=== PATIENT | female | born 2005 | race Two or more races ===

== ENCOUNTER 2024-01-06 17:36 | Emergency (ER) | payer MEDICAID, OTHER ==
[~2024-01-06] VITALS: Ht 160 cm; Wt 36.6 kg
[2024-01-06 18:10] LABS: Urine Bacteria None Seen /hpf (None Seen)
[2024-01-06 18:19] LABS: Urine Blood Negative /uL (Negative); Urine Clarity Clear (Clear); Urine Color Light-Yellow (Yellow); Urine Hyaline Cast FEW /lpf (0 - 2); Urine Mucus FEW (None Seen); Urine Protein, UAD 1+ (Negative); Urine Specific Gravity 1.024 (1.001-1.035); Urine Urobilinogen Normal (Negative); Urine WBC 3 /hpf (0 - 5); Urine pH 5.5 (5.0-9.0)
--- NOTE | 2024-01-06 18:26 | ED.PDOC ---
History of Present Illness HPI Comments 18-year-old female with a history of anorexia brought in by family complaining of nausea, vomiting and abdominal pain described as cramping. Patient states symptoms have been persistent for the past 3 days. She denies any fever, sick contacts, diarrhea or dysuria. She states her last bowel movement was 2 days ago. Chief Complaint: Nausea/Vomiting Time Seen by MD: 18:10 Primary Care Provider: OOA Reviewed Notes: Nurses Notes, Medications, Allergies Allergies: Coded Allergies: NO KNOWN ALLERGIES (Unverified , 01/06/24) Home Meds Active Scripts Metoclopramide Hcl (Reglan) 10 Mg Tab, 10 MG PO Q6HP PRN, #30 TAB prn n/v Prov:NAOMY LEY MD 01/06/24 Doxylamine-Pyridoxine (DICLEGIS) 1 Tab Tab, 1 TAB OR HS PRN, #30 TAB prn n/v Prov:NAOMY LEY MD 01/06/24 Information Source: Patient Mode of Arrival: Ambulatory Severity: Moderate Timing: Days Duration: Since onset, Days Prehospital treatment: None Past Medical History PAST MEDICAL HISTORY: Denies Past Medical History (Other): Anorexia Nervosa Surgical History: Denies all surgeries EXHIBITS MANAGER History: No Pertinent EXHIBITS MANAGER History Family History Family History: Reviewed,noncontributory to illness, Unknown Social History Smoker: Non-Smoker Alcohol: Denies ETOH Use Drugs: Denies Drug Use Lives In: Home Constitutional: denies: chills, diaphoresis, fatigue, fever, malaise, sweats, weakness, others EENTM: denies: blurred vision, double vision, ear bleeding, ear discharge, ear drainage, ear pain, ear ringing, eye pain, eye redness, hearing loss, mouth pain, mouth swelling, nasal discharge, nose bleeding, nose congestion, nose pain, photophobia, tearing, throat pain, throat swelling, voice changes, others Respiratory: denies: cough, hemoptysis, orthopnea, SOB at rest, shortness of breath, SOB with excertion, stridor, wheezing, others Cardiovascular: denies: chest pain, dizzy spells, diaphoresis, Dyspnea on exertion, edema, irregular heart beat, left arm pain, lightheadedness, palpitations, PND, syncope, others Gastrointestinal: reports: abdominal pain, nausea, vomiting; denies: abdomen distended, blood streaked bowels, constipated, diarrhea, dysphagia, difficulty swallowing, hematemesis, melena, poor appetite, poor fluid intake, rectal bleeding, rectal pain, others Genitourinary: denies: abnormal vagina bleeding, burning, dyspareunia, dysuria, flank pain, frequency, hematuria, incontinence, pain, , vagina discharge, urgency, others Neurological: reports: dizziness; denies: fainting, headache, left sided numbness, left sided weakness, numbness, paresthesia, pre-existing deficit, right sided numbness, right sided weakness, seizure, speech problems, tingling, tremors, weakness, others Musculoskeletal: denies: back pain, gout, joint pain, joint swelling, muscle pain, muscle stiffness, neck pain, others Integumetry: denies: bruises, change in color, change in hair/nails, dryness, laceration, lesions, lumps, rash, wounds, others Allergic/Immunocompromised: denies: Difficulty Healing, Frequent Infections, Hives, Itching, others Hematologic/Lymphatic: denies: anemia, blood clots, easy bleeding, easy bruising, swollen glands, others Endocrine: denies: excessive hunger, excessive sweating, excessive thirst, excessive urination, flushing, intolerance to cold, intolerance to heat, unexplained weight gain, unexplained weight loss, others Psychiatric: denies: anxiety, bipolar disorder, depression, hopeless, panic disorder, schizophrenia, sleepless, suicidal, others All Other Systems: Reviewed and Negative Physical Exam General Appearance: No Apparent Distress, Thin HEENT: Other (Dry mucous membranes) Neck: Full Range of Motion, Normal Inspection Respiratory: Lungs Clear, No Accessory Muscle Use, No Respiratory Distress, Normal Breath Sounds Cardiovascular: No Edema, No JVD, Tachycardia Breast Exam: Deferred Gastrointestinal: Non Tender, Soft Genitalia: Deferred Pelvic: Deferred Rectal: Deferred Extremities: Normal inspection, Normal range of motion, Non-tender, No pedal edema Neurologic: Alert, No Motor Deficits, Normal Affect, Normal Mood, No Sensory Deficits Cerebellar Function: NOT DONE Reflexes: NOT DONE Skin: Dry, Pallor, Warm Lymphatic: NOT DONE Was a procedure done? Was a procedure done?: No Differential Dx Considerations may include: Gastritis, gastroenteritis, UTI, electrolyte imbalance, dehydration/hypovolemia, , among others X-Ray, Labs, Meds, VS Vital Signs Date Time Temp Pulse Resp B/P (MAP) Pulse Ox O2 Delivery O2 Flow Rate FiO2 01/06/24 17:50 97.5 122 16 143/84 (103) 97 Lab Test 01/06/24 18:32 01/06/24 17:54 Range/Units White Blood Count 10.8 4.4-10.8 10^3/uL Red Blood Count 5.39 H 4.0-5.20 10^6/uL Hemoglobin 14.1 12.2-16.2 g/dL Hematocrit 43.9 36.0-46.0 % Mean Corpuscular Volume 81.6 80.0-100.0 fL Mean Corpuscular Hemoglobin 26.2 L 28.0-32.0 pg Mean Corpuscular Hemoglobin Concent 32.1 32.0-36.0 g/dL Red Cell Distribution Width 16.0 H 11.8-14.3 % Platelet Count 440 140-450 10^3/uL Mean Platelet Volume 7.1 6.9-10.8 fL Neutrophils (%) (Auto) 87.0 H 37.0-80.0 % Lymphocytes (%) (Auto) 8.2 L 10.0-50.0 % Monocytes (%) (Auto) 4.5 0.0-12.0 % Eosinophils (%) (Auto) 0.1 0.0-7.0 % Basophils (%) (Auto) 0.2 0.0-2.0 % Neutrophils # (Auto) 9.4 H 1.6-8.6 10 ^3/uL Lymphocytes # (Auto) 0.9 0.4-5.4 10 ^3/uL Monocytes # (Auto) 0.5 0-1.3 10 ^3/uL Eosinophils # (Auto) 0 0-0.8 10 ^3/uL Basophils # (Auto) 0 0-0.2 10 ^3/uL Nucleated Red Blood Cells 0.1 % Sodium Level 132 L 136-145 mmol/L Potassium Level 4.9 3.5-5.1 mmol/L Chloride Level 101 98-107 mmol/L Carbon Dioxide Level 12 L 20-31 mmol/L Anion Gap 19 H 5-15 Blood Urea Nitrogen 10 9-23 mg/dL Creatinine 0.80 0.550-1.02 mg/dL Glomerular Filtration Rate Calc 108 >90 mL/min BUN/Creatinine Ratio 12.5 10.0-20.0 Serum Glucose 70 L 74-106 mg/dL Calcium Level 11.1 H 8.7-10.4 mg/dL Total Bilirubin 0.7 0.2-1.0 mg/dL Aspartate Amino Transferase (AST) 22 13-40 U/L Alanine Aminotransferase (ALT) < 9 7-40 U/L Alkaline Phosphatase 96 46-116 U/L Total Protein 9.2 H 5.7-8.2 g/dL Albumin 5.4 H 3.2-4.8 g/dL Lipase 31 12-53 U/L Beta HCG, Quantitative 91753.7 H 1.5-4.2 mIU/mL Urine Color Light-yellow Yellow Urine Clarity Clear Clear Urine pH 5.5 5.0-9.0 Urine Specific [place] 1.024 1.001-1.035 Urine Protein 1+ H Negative Urine Ketones 4+ H Negative Urine Blood Negative Negative /uL Urine Nitrite Negative Negative Urine Bilirubin Negative Negative Urine Urobilinogen Normal Negative mg/dL Urine Leukocyte Esterase Negative Negative /uL Urine RBC 1 0 - 4 /hpf Urine WBC 3 0 - 5 /hpf Urine Squamous Epithelial Cells Few <5 /hpf Urine Bacteria None seen None Seen /hpf Urine Hyaline Casts Few 0 - 2 /lpf Urine Mucus Few None Seen Urine Glucose Normal Normal mg/dL Urine Test Positive Negative PROCEDURE(s): OB4US - OB ULTRASOUND COMP LESS 14WKS REASON: low abd pain,n/v, new dx ORDER NUMBER(s): [id number], ACCESSION NUMBER(s): [id number] OB EVALUATION, LESS THAN 14 WEEKS CLINICAL HISTORY: low abd pain,n/v, new dx COMPARISON: None TECHNIQUE: Grayscale, color-flow Doppler, and spectral Doppler ultrasound of the pelvis is performed by transabdominal and transvaginal technique. FINDINGS: Kerrick Kleaner Operator reports difficulty with the transvaginal examination due to patient discomfort. The uterus measures 7.7 x 6.8 x 4.8 cm. Intrauterine gestational sac and pole are identified. Yolk sac is also noted. Mean gestational sac diameter 1.5 cm. [place]-rump length 0.7 cm. Average gestational age 6 weeks 2 days. heart rate 133 beats per minute. Estimated due date 08/09/2024. Curvilinear, anechoic area superior to the gestational sac measuring approximately 1.4 x 1.0 x 0.8 cm. The right ovary measures 4.3 x 2.8 x 2.2 cm. The left ovary is not visualized. Question trace free fluid in the cul-de-sac. IMPRESSION: Single living intrauterine gestation as above. Anechoic focus adjacent to the gestational sac likely reflecting a subchorionic hematoma. Recommend follow-up as clinically indicated. X-Ray, Labs, Meds, VS Comment 18-year-old female with a history of anorexia complaining of nausea, vomiting and abdominal cramping Vitals remarkable for temperature 97.5, heart rate 122, BP 143/84 Exam remarkable for dry mucous membranes, tachycardia, pallor Urine test was positive. Patient was unaware she was Ob ultrasound: IMPRESSION: Single living intrauterine gestation as above. Anechoic focus adjacent to the gestational sac likely reflecting a subchorionic hematoma. Recommend follow-up as clinically indicated. CBC unremarkable for any abnormality of acute significance, basic metabolic panel remarkable for sodium 132, lipase normal, serum quantitative hCG 61961.7, UA showed protein and ketones. Patient treated with the following in the ED: 2L 0.9 normal saline IV bolus, Reglan 10 mg IV On re-evaluation, patient stated she was feeling better, she tolerated p.o. fluids, vitals were stable. Hospitalization was considered, however the patient had rapid improvement of her symptoms with treatment in the ED, and I no longer feel hospitalization is necessary. Patient appears stable for outpatient treatment with antiemetics and close follow-up to establish care with an OBGYN. Patient will be referred to Dr. Heart. Rx winston Time of 1ST Reevaluation: 18:40 Reevaluation 1ST: Unchanged Time of 2ND Reevaluation: 20:53 Reevaluation 2ND: Improved Patient Education/Counseling: Diagnosis, Treatment, Prognosis Family Education/Counseling: No Family Present Additional Information - The following tests were ordered, and results were reviewed by me: Labs, CT, PHA - I reviewed and agreed with the following test results read by other provider: CT - I discussed treatments and results with medical personnel and: (consultants, family) Departure 1 Departure Time of Disposition: 20:54 Impression: Primary Impression: Hyperemesis gravidarum Disposition: 01 HOME / SELF CARE / HOMELESS Condition: Stable Referrals: [facility] HE[facility] DO Additional Instructions: Your lab tests showed that you are . Your ultrasound showed an approximate 6 week . Your ultrasound report is below. I have prescribed medication for related nausea and vomiting. Follow-up to establish care with an OBGYN in 1-2 days. Return to ER for persistent or worsening symptoms, vaginal bleeding, or any other concern. [place] [id number] Ph: [phone] DIAGNOSTIC IMAGING Diagnostic Imaging Report : [id number] Signed PATIENT: YUMIKO DELGADO ACCT: [id number] UNIT: [id number] : 2005 LOC: ER ROOM / BED: / AGE / SEX: 18 / F ADM STATUS: REG ER SERVICE 185 ORDERING PHYSICIAN: NAOMY LEY MD PROCEDURE(s): OB4US - OB ULTRASOUND COMP LESS 14WKS REASON: low abd pain,n/v, new dx ORDER NUMBER(s): [id number], ACCESSION NUMBER(s): [id number] OB EVALUATION, LESS THAN 14 WEEKS CLINICAL HISTORY: low abd pain,n/v, new dx COMPARISON: None TECHNIQUE: Grayscale, color-flow Doppler, and spectral Doppler ultrasound of the pelvis is performed by transabdominal and transvaginal technique. FINDINGS: Kerrick Kleaner Operator reports difficulty with the transvaginal examination due to patient discomfort. The uterus measures 7.7 x 6.8 x 4.8 cm. Intrauterine gestational sac and pole are identified. Yolk sac is also noted. Mean gestational sac diameter 1.5 cm. [place]-rump length 0.7 cm. Average gestational age 6 weeks 2 days. heart rate 133 beats per minute. Estimated due date 08/09/2024. Curvilinear, anechoic area superior to the gestational sac measuring approximately 1.4 x 1.0 x 0.8 cm. The right ovary measures 4.3 x 2.8 x 2.2 cm. The left ovary is not visualized. Question trace free fluid in the cul-de-sac. IMPRESSION: Single living intrauterine gestation as above. Anechoic focus adjacent to the gestational sac likely reflecting a subchorionic hematoma. Recommend follow-up as clinically indicated. ATED BY: MANUEL DOMÍNGUEZ MD DICTATED DATE/TIME: 01/06/241948 e-Prescriptions Metoclopramide Hcl (Reglan) 10 Mg Tab 10 MG PO Q6HP PRN, #30 TAB prn n/v Prov: NAOMY LEY MD 01/06/24 Doxylamine-Pyridoxine (DICLEGIS) 1 Tab Tab 1 TAB OR HS PRN, #30 TAB prn n/v Prov: NAOMY LEY MD 01/06/24 Discharged With: Relative Critical Care Note Critical Care Time?: No Stability Stability form required: No Heart Score Heart Score: Heart Score Response (Comments) Value History N/A 0 EKG N/A 0 Age N/A 0 Risk Factors N/A 0 Troponin N/A 0 Total 0 I personally scribed for NAOMY LEY MD ([email or web address]) on 01/06/24 at 18:25. Electronically submitted by Triston Car ([email or web address]). NAOMY LEY MD Jan 06, 2024 18:25
[2024-01-06] MEDS: METOCLOPRAMIDE HCL 5MG/ml INJ 2ml VIAL IV ONE (19:00)
[2024-01-06 19:16] LABS: Basophils # (auto) 0 10 ^3/uL (0-0.2); Basophils % (auto) 0.2 % (0.0-2.0); Eosinophils # (auto) 0 10 ^3/uL (0-0.8); Hematocrit 43.9 % (36.0-46.0); Monocytes # (auto) 0.5 10 ^3/uL (0-1.3)
[2024-01-06 19:17] LABS: Eosinophils % (auto) 0.1 % (0.0-7.0); Hemoglobin 14.1 g/dL (12.2-16.2); Lymphocytes # (auto) 0.9 10 ^3/uL (0.4-5.4); Lymphocytes % (auto) 8.2 % (10.0-50.0); Mean Corpuscular Hemoglobin 26.2 pg (28.0-32.0); Mean Corpuscular Hgb Conc. 32.1 g/dL (32.0-36.0); Mean Corpuscular Volume 81.6 fL (80.0-100.0); Monocytes % (auto) 4.5 % (0.0-12.0); Neutrophils # (auto) 9.4 10 ^3/uL (1.6-8.6); Nucleated Red Blood Cells % 0.1 %; Platelet Count (auto) 440 10^3/uL (140-450); Red Blood Cells 5.39 10^6/uL (4.0-5.20); White Blood Cell 10.8 10^3/uL (4.4-10.8)
[2024-01-06 19:31] LABS: Alkaline Phosphatase 96 U/L (46-116); Anion Gap 19 (5-15); Aspartate Aminotransferase 22 U/L (13-40); BUN/Creatinine Ratio 12.5 (10.0-20.0); Bilirubin, Total 0.7 mg/dL (0.2-1.0); Blood Urea Nitrogen 10 mg/dL (9-23); Chloride 101 mmol/L (98-107); Potassium 4.9 mmol/L (3.5-5.1)
[2024-01-06 19:33] LABS: Alanine Aminotransferase < 9 U/L (7-40); Albumin 5.4 g/dL (3.2-4.8); Calcium 11.1 mg/dL (8.7-10.4); Carbon Dioxide 12 mmol/L (20-31); Glucose 70 mg/dL (74-106); Sodium 132 mmol/L (136-145); Total Protein 9.2 g/dL (5.7-8.2)
--- NOTE | 2024-01-06 19:51 | DVH ---
OB EVALUATION, LESS THAN 14 WEEKS CLINICAL HISTORY: low abd pain,n/v, new dx COMPARISON: None TECHNIQUE: Grayscale, color-flow Doppler, and spectral Doppler ultrasound of the pelvis is performed by transabdominal and transvaginal technique. FINDINGS: Playground Equipment Erector reports difficulty with the transvaginal examination due to patient discomfort. The uterus measures 7.7 x 6.8 x 4.8 cm. Intrauterine gestational sac and pole are identified. Y olk sac is also noted. Mean gestational sac diameter 1.5 cm. [place]-rump length 0.7 cm. Average gesta tional age 6 weeks 2 days. heart rate 133 beats per minute. Estimated due date 08/09/2024. Curvilinear, anechoic area superior to the gestational sac measuring approximately 1.4 x 1.0 x 0.8 cm . The right ovary measures 4.3 x 2.8 x 2.2 cm. The left ovary is not visualized. Question trace free f luid in the cul-de-sac. IMPRESSION: Single living intrauterine gestation as above. Anechoic focus adjacent to the gestational sac likely reflecting a subchorionic hematoma. Recommend follow-up as clinically indicated.
[2024-01-06] MEDS ORDERED: METO-281 PO (20:59)
[2024-01-06] MEDS ORDERED: DOXY10TA OR (20:59)
[2024-01-07 00:30] VITALS: BP 128/75; TEMP 97.7
[2024-01-07] MEDS: SODIUM CHLORIDE 0.9% 1,000 ML IV ONE ×2 (00:35)
[2024-01-07 00:36] VITALS: PULSE 100; RESP 18; O2SAT 99
== END 2024-01-07 00:38 | disposition home or self-care (01) ==
LOC: ER 17:36
DX: O21.0 Mild hyperemesis gravidarum (principal); R10.2 Pelvic and perineal pain; Z3A.01 Less than 8 weeks gestation of pregnancy; Z79.899 Other long term (current) drug therapy
CPT/HCPCS: 36415; 76801; 76817; 80053; 81001; 81025; 83690; 84702; 85025

== ENCOUNTER 2024-08-18 02:30 | Inpatient (IN) | payer MEDICAID ==
[~2024-08-18] VITALS: Ht 162.6 cm; Wt 66.2 kg
[~2024-08-18 02:30] MED LIST: DOXY10TA OR; METO-281 PO
[2024-08-18] MEDS: PHISODERM TOP SOLN 240ML BTL TOP PRN (03:35)
[2024-08-18] MEDS: WITCH HAZEL-GLYCERIN PAD TOP PRN (03:35)
[2024-08-18] MEDS: DERMOPLAST 60ML BOTTLE TOP PRN (03:35)
[2024-08-18] MEDS: LACTATED RINGER'S 1,000 ML IV SCH (03:36)
[2024-08-18] MEDS: PENICILLIN G POT 5MIL/D5 50ML 50 ML IV ONE (03:41)
[2024-08-18 03:57] LABS: Hematocrit 31.0 % (36.0-46.0); Hemoglobin 9.7 g/dL (12.2-16.2); Mean Corpuscular Hemoglobin 22.8 pg (28.0-32.0); Mean Corpuscular Volume 73.2 fL (80.0-100.0); Nucleated Red Blood Cells % 0.1 %
[2024-08-18 04:18] LABS: Albumin 4.1 g/dL (3.2-4.8); Anion Gap 12 (5-15); BUN/Creatinine Ratio 22.4 (10.0-20.0); Bilirubin, Total 0.3 mg/dL (0.2-1.0); Blood Urea Nitrogen 11 mg/dL (9-23); Calcium 9.3 mg/dL (8.7-10.4); Carbon Dioxide 21 mmol/L (20-31); Chloride 106 mmol/L (98-107); Glucose 87 mg/dL (74-106); Potassium 3.8 mmol/L (3.5-5.1); Sodium 139 mmol/L (136-145); Total Protein 7.0 g/dL (5.7-8.2)
[2024-08-18 04:37] LABS: Alanine Aminotransferase < 9 U/L (7-40); Alkaline Phosphatase 195 U/L (46-116)
[2024-08-18 04:41] LABS: Amphetamine Screen, Urine Neg (NEGATIVE); Barbiturate Scree,Urine Neg (NEGATIVE); Benzodiazephine Screen, Urine Neg (NEGATIVE); Cannabinoid Screen, Urine Neg (NEGATIVE); Cocaine Screen, Urine Neg (NEGATIVE); Opiate Scree,Urine Neg (NEGATIVE); Phencyclidine Screen, Urine Neg (NEGATIVE)
[2024-08-18 04:45] LABS: Urine Protein, UAD 1+ (Negative)
[2024-08-18 05:25] LABS: INR 0.92 (0.9-1.15); Partial Thromboplastin Time 25.6 SEC (24.5-34.5); Prothrombin Time 9.8 sec (9.3-11.8)
--- NOTE | 2024-08-18 06:04 | DVHHP2 ---
OB CC & HPI Date Date of Admission: Aug 18, 2024 Patient Identification: : 1 Para: 0 EDC: Aug 15, 2024 EGA: 40+ Chief Complaints: Admission Nurse Assessment Rev: Yes History of Present Complaints Patient had early ultrasound at 6 weeks 1 visit recently essentially no care. Past Medical History Cardiac: No pertinent Hx Pulmonary: No pertinent Hx Central Nervous System: No pertinent Hx GI: No pertinent Hx Hemotology/Oncology: No pertinent Hx Hepatobiliary: No pertinent Hx Psychiatric: No pertinent Hx Musculoskeletal: No pertinent Hx Rheumotologic: No pertinent Hx Infectious Disease: No peritnent Hx ENT: No pertinent Hx Renal/: No pertinent Hx Endocrine: No pertinent Hx Dermatology: No pertinent Hx Past Surgical History: No pertinent Hx OB History OB History Care: Limited Care Ultrasounds: Normal mid trimester US Obstetrical Complications: None Medical Complications: None Allergies: Coded Allergies: NO KNOWN ALLERGIES (Unverified , 01/06/24) Home Meds Active Scripts Metoclopramide Hcl (Reglan) 10 Mg Tab, 10 MG PO Q6HP PRN, #30 TAB prn n/v Prov:NAOMY LEY MD 01/07/24 Doxylamine-Pyridoxine (DICLEGIS) 1 Tab Tab, 1 TAB OR HS PRN, #30 TAB prn n/v Prov:NAOMY LEY MD 01/07/24 Current Medications Current Medications Medications (Trade) Dose Ordered Sig/Princess Route PRN Reason Start Time Stop Time Status Last Admin Lactated Ringer's 1,000 ml @ 125 mls/hr Q8H IV 08/18/24 03:15 08/18/24 03:36 Penicillin G Potassium 4432500 units/Dextrose 50 ml @ 100 mls/hr Q4H IV 08/18/24 07:15 Witch Leticia (Tucks) 1 pad PRN PRN TOP PERINEAL AREA DISCOMFORT 08/18/24 03:15 08/18/24 03:35 Sodium Lauryl Sulfate (Phisoderm) 240 ml PRN PRN TOP PERINEAL AREA DISCOMFORT 08/18/24 03:15 08/18/24 03:35 Benzocaine (Dermoplast) 1 applic PRN PRN TOP PERINEAL AREA DISCOMFORT 08/18/24 03:15 08/18/24 03:35 Lidocaine HCl (Xylocaine) 40 ml ONCE PRN IJ PERINEAL AREA DISCOMFORT 08/18/24 03:15 Family & Social History Family/Social History Blood Type: A+ Rubella: unknown RPR/VDRL: Negative GBS Status: Unknown HBsAG: Negative Review of Systems Constitutional: No symptom reported Ears, Nose, & Throat: No symptom reported Eyes: No symptom reported Pulmonary/Respiratory: No symptom reported Cardiovascular: No symptom reported Gastrointestinal: No symptom reported Genitourinary: No symptom reported Musculoskeletal: No symptom reported Skin: No symptom reported Psychiatric: No symptom reported Endocrine: No symptom reported Hemotologic/Lymphatic: No symptom reported OB Admission Exam Physical Exam HEENT: TMs Normal, [place] Normal, Nasal Mucosa Normal, Eyes non-injected, Oropharynx Normal, PERRLA, Moist Membranes, EOMI Heart: Rhythm Normal Lungs: Clear Abdomen: Non tender Extremities: Normal Reflexes: Normal Cervical Dilatation: 4cm Effacement: 75% Station: -1 Membranes: Intact Heart Rate: 130's Accelerations: Accelerations Present Decelerations: No Decelerations Short Term Variability: Present Fci Variability: Average (6-25) Contractions on Admission: < 5 Minutes Apart Intensity: Moderate OB Plan Plan Admitting Diagnosis: Labor; limited care one visit 3rd Tri : Group B status unknown Plan: Expectant Management Visit Coding OBGYN Date of Service: Aug 18, 2024 Billing Provider: YVONNE SANTOS DO LAMINA SEARCHER Common Visit Codes: 63711-LRX/OBS SAME DATE (HIGH) LAMINA SEARCHER Procedure Codes: 21434-60- NON-STRESS TEST YVONNE SANTOS DO Aug 18, 2024 06:04
[2024-08-18] MEDS: LIDOCAINE 2%HCL (LOCAL ANESTH.) INJ 20ML MDV IJ PRN (06:42)
[2024-08-18] MEDS: LACT. RINGERS/OXYTOCIN 20UNITS 500 ML IV ONE ×2 (06:42→06:43)
[2024-08-18] MEDS ORDERED: ONDANSETRON ODT 4 MG TAB PO PRN (06:45)
--- NOTE | 2024-08-18 06:50 | LDN2 ---
Labor and Delivery Note Date 08/18/24 Age 19 1 Para 0 AB 0 EDC 40+ EGA 40+ Diagnosis Labor Vaginal Delivery: VTX Vacuum Assisted: No Placenta: Spontaneous Sex: Female Weight 6lbs 5 oz Apgars 8/9 Nuchal Cord Transected: No Amniotic Fluid: Clear Anesthesia none Episiotomy: No Extension: Yes (1st degree bilat anterior, 2nd posterior midline) Repaired with 2-0 Chromic EBL 200cc Labs Laboratory Tests 08/18/24 03:38: Hepatitis B Surface Antigen Negative, HIV (1&2) Antibody Negative Blood Bank 08/18/24 03:38: Blood Type A POSITIVE Complications none Conditions stable guarded Business Enterprise Officer none present or needed Visit Coding OBGYN Date of Service: Aug 18, 2024 Billing Provider: YVONNE SANTOS DO PANTOGRAPH MACHINE SET UP OPERATOR Common Visit Codes: 02929-RHQ/OBS SAME DATE (HIGH) PANTOGRAPH MACHINE SET UP OPERATOR Procedure Codes: 07233-HOL DEL INCLUDING YVONNE SANTOS DO Aug 18, 2024 06:50
[2024-08-18] MEDS ORDERED: PENICILLIN G POTASSIUM 2,500,000 UNITS in D5W 5% 50 ML IV SCH (07:15)
[2024-08-18] MEDS: IBUPROFEN 600 MG TAB PO PRN (08:04)
[2024-08-18 11:00] VITALS: BP 133/67; PULSE 79; RESP 18; TEMP 98.5; O2SAT 97
[2024-08-18] MEDS ORDERED: IBUPROFEN 800 MG TAB PO SCH (12:00)
[2024-08-18 15:00] VITALS: BP 129/66; PULSE 77; RESP 16; TEMP 98.2; O2SAT 97
[2024-08-18 19:30] VITALS: BP 123/64; PULSE 89; RESP 16; TEMP 98.4; O2SAT 98
[2024-08-18] MEDS: ACETAMINOPHEN 325 MG TAB PO PRN (22:29)
[2024-08-18] MEDS: DOCUSATE SOD 100 MG CAP PO SCH (22:29)
[2024-08-18 23:15] VITALS: BP 123/74; PULSE 87; RESP 16; TEMP 98.4; O2SAT 99
[2024-08-19 03:15] VITALS: BP 125/70; PULSE 85; RESP 16; TEMP 98.5; O2SAT 98
--- NOTE | 2024-08-19 06:28 | DVHPN2 ---
Progress Note - Dictate Date Seen: Aug 19, 2024 Has the PT tested + for MRSA If YES, has PT been informed?: No Medical Necessity Reason Pt with a Central, PICC or Fol: No Subjective post day 1 stable improved vital signs Vital Sign Date Time Temp Pulse Resp B/P (MAP) Pulse Ox O2 Delivery O2 Flow Rate FiO2 08/19/24 03:15 98.5 85 16 125/70 (88) 98 98.5 08/18/24 19:00 Room Air Total Intake and Output 08/18/24 08/18/24 08/19/24 15:00 23:00 07:00 Output Total 350 ml 600 ml 300 ml Balance -350 ml -600 ml -300 ml medications Current Medications Medications Dose Ordered Sig/Princess Route Start Time Stop Time Status Last Admin Dose Admin Lactated Ringer's 1,000 ml @ 125 mls/hr Q8H IV 08/18/24 03:15 08/18/24 03:36 125 MLS/HR Penicillin G Potassium 6776205 units/Dextrose 50 ml @ 100 mls/hr Q4H IV 08/18/24 07:15 Cancel Witch Leticia 1 pad PRN PRN TOP 08/18/24 03:15 08/18/24 03:35 1 PAD Sodium Lauryl Sulfate 240 ml PRN PRN TOP 08/18/24 03:15 08/18/24 03:35 240 ML Benzocaine 1 applic PRN PRN TOP 08/18/24 03:15 08/18/24 03:35 1 APPLIC Ibuprofen 600 mg Q6HP PRN PO 08/18/24 06:45 08/18/24 17:29 600 MG Acetaminophen 650 mg Q4HP PRN PO 08/18/24 06:45 08/18/24 22:29 650 MG Ondansetron HCl 4 mg Q4HPRN PRN PO 08/18/24 06:45 Docusate Sodium 200 mg HS PO 08/18/24 22:00 08/18/24 22:29 200 MG Ibuprofen 800 mg Q6HR PO 08/18/24 12:00 Cancel laboratory and microbiology Laboratory Tests 08/18/24 03:38 Test 08/18/24 03:38 Range/Units Serum Glucose 87 74-106 mg/dL Assessment/Plan PPD #1 requesting DC home Plan discussed with: Patient Visit Coding OBGYN Date of Service: Aug 19, 2024 Billing Provider: YVONNE SANTOS DO DATA CENTER ENGINEER Common Visit Codes: [id number] INP/OBS CARE(HIGH) DATA CENTER ENGINEER Procedure Codes: 59009-AKA DEL INCLUDING YVONNE SANTOS DO Aug 19, 2024 06:28
--- NOTE | 2024-08-19 06:29 | DVHDS2 ---
Discharge Summary Date of Admission Aug 18, 2024 at 02:55 Date of Discharge: Aug 19, 2024 Admitting Diagnosis labor Labs/Diagnostic Data: Laboratory Results Test 08/18/24 03:38 08/18/24 03:15 White Blood Count 16.5 10^3/uL (4.4-10.8) Red Blood Count 4.23 10^6/uL (4.0-5.20) Hemoglobin 9.7 g/dL (12.2-16.2) Hematocrit 31.0 % (36.0-46.0) Mean Corpuscular Volume 73.2 fL (80.0-100.0) Mean Corpuscular Hemoglobin 22.8 pg (28.0-32.0) Mean Corpuscular Hemoglobin Concent 31.2 g/dL (32.0-36.0) Red Cell Distribution Width 17.0 % (11.8-14.3) Platelet Count 379 10^3/uL (140-450) Mean Platelet Volume 8.2 fL (6.9-10.8) Neutrophils (%) (Auto) 82.6 % (37.0-80.0) Lymphocytes (%) (Auto) 12.0 % (10.0-50.0) Monocytes (%) (Auto) 5.1 % (0.0-12.0) Eosinophils (%) (Auto) 0.1 % (0.0-7.0) Basophils (%) (Auto) 0.2 % (0.0-2.0) Neutrophils # (Auto) 13.7 10 ^3/uL (1.6-8.6) Lymphocytes # (Auto) 2.0 10 ^3/uL (0.4-5.4) Monocytes # (Auto) 0.8 10 ^3/uL (0-1.3) Eosinophils # (Auto) 0 10 ^3/uL (0-0.8) Basophils # (Auto) 0 10 ^3/uL (0-0.2) Nucleated Red Blood Cells 0.1 % Prothrombin Time 9.8 sec (9.3-11.8) Prothrombin Time INR 0.92 (0.9-1.15) Activated Partial Thromboplast Time 25.6 SEC (24.5-34.5) Sodium Level 139 mmol/L (136-145) Potassium Level 3.8 mmol/L (3.5-5.1) Chloride Level 106 mmol/L (98-107) Carbon Dioxide Level 21 mmol/L (20-31) Anion Gap 12 (5-15) Blood Urea Nitrogen 11 mg/dL (9-23) Creatinine 0.49 mg/dL (0.550-1.02) Glomerular Filtration Rate Calc 137 mL/min (>90) BUN/Creatinine Ratio 22.4 (10.0-20.0) Serum Glucose 87 mg/dL (74-106) Calcium Level 9.3 mg/dL (8.7-10.4) Total Bilirubin 0.3 mg/dL (0.2-1.0) Aspartate Amino Transferase (AST) 19 U/L (13-40) Alanine Aminotransferase (ALT) < 9 U/L (7-40) Alkaline Phosphatase 195 U/L (46-116) Total Protein 7.0 g/dL (5.7-8.2) Albumin 4.1 g/dL (3.2-4.8) Treponema pallidum Antibody Non-reactive (Negative) Hepatitis B Surface Antigen Negative (Negative) Hepatitis C Antibody Negative (Negative) HIV (1&2) Antibody Negative (Negative) Rubella Antibody Positive Urine Color Light-yellow (Yellow) Urine Clarity Turbid (Clear) Urine pH 6.0 (5.0-9.0) Urine Specific [place] 1.028 (1.001-1.035) Urine Protein 1+ (Negative) Urine Ketones Negative (Negative) Urine Blood Negative /uL (Negative) Urine Nitrite Negative (Negative) Urine Bilirubin Negative (Negative) Urine Urobilinogen Normal mg/dL (Negative) Urine Leukocyte Esterase 2+ /uL (Negative) Urine RBC 4 /hpf (0 - 4) Urine Microscopic WBC 14 /HPF (0-5) Urine Squamous Epithelial Cells Mod /hpf (<5) Urine Bacteria Few /hpf (None Seen) Urine Hyaline Casts Few /lpf (0 - 2) Urine Mucus Few (None Seen) Urine Glucose Normal mg/dL (Normal) Urine Opiates Screen Neg (NEGATIVE) Urine Fentanyl Screen Neg (NEGATIVE) Urine Barbiturates Screen Neg (NEGATIVE) Urine Phencyclidine Screen Neg (NEGATIVE) Urine Amphetamines Screen Neg (NEGATIVE) Urine Benzodiazepines Screen Neg (NEGATIVE) Urine Cocaine Screen Neg (NEGATIVE) Urine Cannabinoids Screen Neg (NEGATIVE) Other Laboratory Tests 08/18/24 03:38 Brief Hx & Hospital Course: stable Condition at Discharge: Good Final Diagnosis/Problems List s/p Discharge Disposition: Home Discharge Instruct/Medications Diet: Consistent carbohydrate Scheduled PRN Doxylamine-Pyridoxine (Diclegis), 1 TAB OR HS PRN Metoclopramide Hcl (Reglan), 10 MG PO Q6HP PRN Discharge Statement: "Patient was advised to return to the ER or call 911 if any headaches, dizziness, shortness of breath, chest pain, abdominal pain, bleeding, fevers, or worsening of medical condition. Patient was counseled about treatment plan, medications, possible side effects, patientverbalized understanding. All questions were answered to the best of my ability. This discharge took greater then 30 minutes in planning, reviewing documentation, counseling the patient, and discussing with other team members." ASSESSMENT ASSESSMENT Assessment Visit Coding OBGYN Date of Service: Aug 19, 2024 Billing Provider: YVONNE SANTOS DO MOLDER FLOOR Common Visit Codes: [id number] INP/OBS CARE(HIGH), 04798-ZCA/OBS SAME DATE (LOW), 10811-WWZ/OBS SAME DATE (MOD) MOLDER FLOOR Procedure Codes: 61042-PUB DEL INCLUDING YVONNE SANTOS DO Aug 19, 2024 06:29
[2024-08-19 06:49] VITALS: BP 123/67; PULSE 80; RESP 17; TEMP 98.2; O2SAT 98
[2024-08-19] MEDS ORDERED: PREN-96 PO (08:54)
[2024-08-19 10:58] VITALS: BP 132/71; PULSE 90; RESP 17; TEMP 98.5; O2SAT 98
[2024-08-19 14:59] VITALS: BP 132/79; PULSE 84; RESP 17; TEMP 98.1; O2SAT 98
[2024-08-20 03:07] LABS: Chlamydia Trachomatis, NAA Positive (Negative); Neisseria gonorrhoeae, NAA Negative (Negative)
== END 2024-08-19 16:35 | disposition home or self-care (01) | DRG 560 ==
LOC: LDRP 02:30 → OBSVTOIN 02:55 → LDRP 03:05
PROVIDERS: ADMIT Obstetrics & Gynecology; ATTEND Obstetrics & Gynecology
PROC: 10E0XZZ Delivery of Products of Conception, External Approach (ICD-10-PCS; principal; 2024-08-18)
PROC: 0HQ9XZZ Repair Perineum Skin, External Approach (ICD-10-PCS; 2024-08-18)
DX: O48.0 Post-term pregnancy (principal); Z37.0 Single live birth; O70.0 First degree perineal laceration during delivery; Z3A.40 40 weeks gestation of pregnancy
CPT/HCPCS: 36415; 59025; 59409; 80053; 80307; 81001; 81002; 85025; 85610; 85730; 86703; 86762; 86780; 86803; 86850; 86900; 86901; 87340; 94760; 96360; 96361; 96365; 96366; G0378; J2540; J2590; J7060